=== PATIENT | female | born 1935 | race Caucasian/White ===

== ENCOUNTER 2016-07-06 12:56 | Emergency (ER) | payer MEDICARE, BC ==
[2016-07-06] MEDS ORDERED: Sodium Chloride 0.9% 10 ML Syringe FLUSH PRN (13:12)
[2016-07-06] MEDS ORDERED: HYDROmorphone 1 MG/ML Syringe IVPUSH ONE (13:13)
--- NOTE | 2016-07-06 13:47 | EDM.PDOC ---
ED HPI Trauma - General Chief Complaint: Lower Extremity Injury/Pain Stated Complaint: [facility] Time Seen by Provider: 07/06/16 13:06 Source: Reports: Patient, EMS History Limitations: Reports: No limitations - History of Present Illness INITIAL COMMENTS - FREE TEXT/NARRATIVE: The patient present with right hip pain. She has a prosthetic hip on the right and she was sitting down to use the toilet and when she tried to get up she had severe pain. She had her hip surgery years ago in [place]. Two years ago she had a hip dislocation that Dr Carpio had to come in to reduce it. She came in by ambulance. Her BP was high and she was demanding to take her blood pressure medications. I allowed her to do that. She denies any other pain. She had no other injuries. She just sat right back down on the toilet when this happened. Occurred When: just prior to arrival Occurred Where: home Method of Injury: other (Getting up off of the toilet) Severity: severe Pain/Injury Location: Reports: lower extremity, right (hip) Consciousness: Reports: no loss of consciousness Associated Symptoms: Reports: no other symptoms Allergies/ADRs: Allergies No Known Allergies Allergy (Verified 07/06/16 13:03) Home Medications: Ambulatory Orders Irbesartan/Hydrochlorothiazide [Irbesartan-Hctz 300-12.5 mg Tb] 1 tab PO DAILY 10/25/14 [Confirmed 07/06/16] Levothyroxine [Synthroid] 75 mcg PO DAILY 10/25/14 [Confirmed 07/06/16] Metoprolol Tartrate [Lopressor] 50 mg PO BID 10/25/14 [Confirmed 07/06/16] Past Medical History Cardiovascular History: Reports: Hypertension Other Musculoskeletal History: L4-L5, left hip pain Other Endocrine/Metabolic History: Per pt no thyroid problems, after menopause likes pts on thyroid meds - Past Surgical History Musculoskeletal Surgical History: Reports: Hip replacement Other Musculoskeletal Surgeries/Procedures:: right hip 2003 Social & Family History - Tobacco Use Smoking Status *Q: Never Smoker Second Hand Smoke Exposure: No - Caffeine Use Caffeine Use: Reports: Coffee - Recreational Drug Use Recreational Drug Use: No Review of Systems - Review of Systems Review Of Systems: See Below Constitutional: Reports: no symptoms Eyes: Reports: no symptoms Ears: Reports: no symptoms Nose: Reports: no symptoms Mouth/Throat: Reports: no symptoms Respiratory: Reports: No Symptoms Cardiovascular: Reports: no symptoms GI/Abdominal: Reports: No symptoms Genitourinary: Reports: no symptoms Musculoskeletal: Reports: other (Right hip pain) Trauma Exam - Physical Exam Exam: See Below Exam Limited By: No limitations General Appearance: Reports: alert, no apparent distress Head: Reports: atraumatic, normocephalic Ears: Reports: normal external exam Nose: Reports: normal inspection Respiratory Exam: Reports: no respiratory distress, lungs clear, normal breath sounds Cardiovascular: Reports: regular rate, rhythm, no edema, no murmur GI/Abdominal: Reports: soft, non tender, no organomegaly Extremities: Reports: other (Pain upon palpation right hip. Good sensation and pulses distally.) Course - Vital Signs Last Recorded V/S: Last Vital Signs Temp 98.1 F 07/06/16 14:38 Pulse 60 07/06/16 14:38 Resp 18 07/06/16 14:38 BP 152/71 H 07/06/16 14:38 Pulse Ox 98 07/06/16 14:38 - Orders/Labs/Meds Orders: Active Orders 24 hr Category Date Time Status Peripheral IV Care [RC] . DIRECTED Care 07/06/16 13:13 Active Hip Min 1V w Pelvis Rt [CR] Stat Exams 07/06/16 13:13 Taken Hip Min 2V or 3V Rt [CR] Stat Exams 07/06/16 15:01 Taken Sodium Chloride 0.9% [Saline Flush] Med 07/06/16 13:12 Active 10 ml FLUSH ASDIRECTED PRN Peripheral IV Insertion Adult [OM.PC] Routine Oth 07/06/16 13:12 Ordered Medication Orders Sodium Chloride (Saline Flush) 10 ml FLUSH ASDIRECTED PRN PRN Reason: Keep Vein Open Last Admin: 07/06/16 13:24 Dose: 10 ml Meds: Medications Generic Name Dose Route Start Last Admin Trade Name Freq PRN Reason Stop Dose Admin Sodium Chloride 10 ml 07/06/16 13:12 07/06/16 13:24 Saline Flush FLUSH 10 ml ASDIRECTED PRN Administration Keep Vein Open Discontinued Medications Generic Name Dose Route Start Last Admin Trade Name Freq PRN Reason Stop Dose Admin Hydromorphone HCl 1 mg 07/06/16 13:13 07/06/16 13:20 Dilaudid IVPUSH 07/06/16 13:14 1 mg ONETIME ONE Administration Lactated Ringer's Confirm 07/06/16 14:10 Ringers, Lactated Administered 07/06/16 14:11 Dose 1,000 mls @ as directed .ROUTE .STK-MED ONE Lidocaine HCl Confirm 07/06/16 14:56 Xylocaine-Mpf 1% Administered 07/06/16 14:57 Dose 4 mls @ as directed .ROUTE .STK-MED ONE Midazolam HCl Confirm 07/06/16 14:56 Versed 1 Mg/Ml Administered 07/06/16 14:57 Dose 2 mg .ROUTE .STK-MED ONE Propofol Confirm 07/06/16 14:56 Diprivan 20 Ml Administered 07/06/16 14:57 Dose 200 mg .ROUTE .STK-MED ONE - Re-Assessments/Exams Free Text/Narrative Re-Assessment/Exam: 07/06/16 13:47 I ordered an IV saline lock and dilaudid 1mg IV. I will get an x-ray. 07/06/16 14:21 The x-ray confirms a superior posterior right prosthetic hip dislocation. The patient does not want me to reduce it but she wants Dr Carpio to do it. I called Dr Carpio and he will come in and reduce it. He wanted anaesthesia called. I have called them too. 07/06/16 15:33 Dr Carpio came in and successfully reduced her hip dislocation. I will discharge her to home with follow up to him. Departure - Departure Time of Disposition: 15:35 Disposition: Home, Self-Care 01 Condition: good Clinical Impression: Hip dislocation, right Qualifiers: Encounter type: initial encounter Qualified Code(s): S73.004A - Unspecified dislocation of right hip, initial encounter Referrals: Jose Carpio MD [Physician] - 2 Weeks Forms: ED Department Discharge Additional Instructions: Follow up with Dr Carpio in 2 weeks. - My Orders Last 24 Hours: My Active Orders 07/06/16 13:12 Sodium Chloride 0.9% [Saline Flush] 10 ml FLUSH ASDIRECTED PRN Peripheral IV Insertion Adult [OM.PC] Routine 07/06/16 13:13 Peripheral IV Care [RC] . DIRECTED Hip Min 1V w Pelvis Rt [CR] Stat - Assessment/Plan Last 24 Hours: My Active Orders 07/06/16 13:12 Sodium Chloride 0.9% [Saline Flush] 10 ml FLUSH ASDIRECTED PRN Peripheral IV Insertion Adult [OM.PC] Routine 07/06/16 13:13 Peripheral IV Care [RC] . DIRECTED Hip Min 1V w Pelvis Rt [CR] Stat
[2016-07-06] MEDS ORDERED: Lactated Ringers 1,000 ML ONE (14:10)
--- NOTE | 2016-07-06 14:35 | PCM.PREANE ---
Preanesthetic Assessment - Anesthesia/Transfusion/Family Hx Anesthesia History: Prior Anesthesia Without Reaction Family History of Anesthesia Reaction: No - Review of Systems General: Malaise Pulmonary: No Symptoms Cardiovascular: No Symptoms Gastrointestinal: No symptoms Neurological: No Symptoms Other: Reports: Thyroid Problems (hypothyroid) - Physical Assessment NPO Status Date: 07/06/16 NPO Status Time: 10:30 Pulse: 60 O2 Sat by Pulse Oximetry: 98 Respiratory Rate: 18 Blood Pressure: 152/71 Temperature: 36.7 C Vital Signs: Last Vital Signs Temp 36.9 C 07/06/16 13:00 Pulse 60 07/06/16 13:00 Resp 18 07/06/16 13:00 BP Pulse Ox 98 07/06/16 13:00 Height: 1.68 m Weight: 90.718 kg ASA Class: 2 Mental Status: Alert & Oriented x3 Airway Class: Mallampati = 2 Dentition: Reports: Implants (teeth on top of mouth) Thyro-Mental Finger Breadths: 3 Mouth Opening Finger Breadths: 3 ROM/Head Extension: Full Lungs: Clear to auscultation, Normal respiratory effort Cardiovascular: Regular Rate, Regular Rhythm, No Murmurs - Allergies Allergies/Adverse Reactions: Allergies Allergy/AdvReac Type Severity Reaction Status Date / Time No Known Allergies Allergy Verified 07/06/16 13:03 - Blood Blood Available: No Product(s) Available: None - Anesthesia Plan Pre-Op Medication Ordered: Beta Milton Beta Milton: Metoprolol Med Last Dose Date: 07/06/16 Med Last Dose Time: 14:00 - Acknowledgements Anesthesia Type Planned: MAC Pt an Appropriate Candidate for the Planned Anesthesia: Yes Alternatives and Risks of Anesthesia Discussed w Pt/Guardian: Yes Pt/Guardian Understands and Agrees with Anesthesia Plan: Yes PreAnesthesia Questionnaire Cardiovascular History: Reports: Hypertension Other Musculoskeletal History: L4-L5, left hip pain Other Endocrine/Metabolic History: Per pt no thyroid problems, after menopause likes pts on thyroid meds - Past Surgical History Musculoskeletal Surgical History: Reports: Hip replacement Other Musculoskeletal Surgeries/Procedures:: right hip 2003 - SUBSTANCE USE Smoking Status *Q: Never Smoker Tobacco Use Within Last Twelve Months: No Second Hand Smoke Exposure: No Days Per Week of Alcohol Use: 0 Number of Drinks Per Day: 0 Total Drinks Per Week: 0 Recreational Drug Use History: No - HOME MEDS Home Medications: Home Meds Irbesartan/Hydrochlorothiazide [Irbesartan-Hctz 300-12.5 mg Tb] 1 tab PO DAILY 10/25/14 [History] Levothyroxine [Synthroid] 75 mcg PO DAILY 10/25/14 [History] Metoprolol Tartrate [Lopressor] 50 mg PO BID 10/25/14 [History] - CURRENT (IN HOUSE) MEDS Current Meds: Current Medications Sodium Chloride (Saline Flush) 10 ml FLUSH ASDIRECTED PRN PRN Reason: Keep Vein Open Last Admin: 07/06/16 13:24 Dose: 10 ml Discontinued Medications Hydromorphone HCl (Dilaudid) 1 mg IVPUSH ONETIME ONE Stop: 07/06/16 13:14 Last Admin: 07/06/16 13:20 Dose: 1 mg Lactated Ringer's (Ringers, Lactated) Confirm Administered Dose 1,000 mls @ as directed .ROUTE .STK-MED ONE Stop: 07/06/16 14:11
[2016-07-06] MEDS ORDERED: Lidocaine 1% 4 ML ONE (14:56)
[2016-07-06] MEDS ORDERED: Midazolam 1 MG/ML 2 ML SDV ONE (14:56)
[2016-07-06] MEDS ORDERED: Propofol 200 MG/20 ML SDV ONE (14:56)
[2016-07-06 16:45] VITALS: BP 140/78
--- NOTE | 2016-07-07 17:25 | CR ---
Pelvis and right hip: AP view of the pelvis was obtained as well as AP and lateral views of the right hip. Comparison: Previous right hip study of 10/25/14. Dislocated right hip prosthesis is seen. Severe degenerative change noted within the left hip. Bony structures are osteopenic. No acute fracture is seen. Impression: 1. Dislocated right hip prosthesis. 2. Other incidental findings as described above. Diagnostic code #3
--- NOTE | 2016-07-07 17:25 | CR ---
Right hip: AP and lateral views of the right hip were obtained. Comparison: Previous study performed earlier on the same day (12:38 PM). Previous right hip dislocation has been reduced. Components of right hip prosthesis are aligned. Other portions of the right hip are stable. Impression: 1. Right hip prosthesis shows normal alignment on current exam. Previous dislocation has been corrected. Diagnostic code #2
== END 2016-07-06 16:35 | disposition home or self-care (01) ==
LOC: JD.ED 12:56 → SUPCPDRO 12:56 → JD.ED 16:35
DX: S73.004A Unspecified dislocation of right hip, initial encounter (principal); Z96.641 Presence of right artificial hip joint; X58.XXXA Exposure to other specified factors, initial encounter; I10 Essential (primary) hypertension; Z79.899 Other long term (current) drug therapy
CPT/HCPCS: 27252; 73501; 73502; 96374; 99285; J1170; J7050; 01200; 99284; J2250; J2704

== ENCOUNTER 2019-10-05 13:02 | Emergency (ER) | payer MEDICARE, BC ==
[2019-10-05 13:14] VITALS: BP 220/92; PULSE 71
[2019-10-05] MEDS ORDERED: HYDROmorphone 0.5 MG/0.5 ML Syringe IVPUSH ONE (13:18)
[2019-10-05] MEDS ORDERED: Sodium Chloride 0.9% 10 ML Syringe FLUSH PRN (13:28)
[2019-10-05] MEDS ORDERED: LORazepam 2 MG/ML SDV IVPUSH ONE (13:29)
--- NOTE | 2019-10-05 13:44 | EDM.PDOC ---
ED HPI GENERAL MEDICAL PROBLEM - General Chief Complaint: Lower Extremity Injury/Pain Stated Complaint: [facility] Time Seen by Provider: 10/05/19 13:20 Source of Information: Reports: Patient, RN Notes Reviewed - History of Present Illness INITIAL COMMENTS - FREE TEXT/NARRATIVE: 84 yr old female just twisted to the right in a bianchi at a restaurant. Her R hip dislocated with sudden onset R hip pain similar to what has happened on 3 previous occasions. She did have R hip replacement 16 yrs ago at a [facility]. Has had multiple dislocations the past 4 yrs with the last dislocation just 1 month ago, reduced at a [facility]. Right Hip Pain Score (Numeric/FACES): 10 - Related Data Allergies Allergy/AdvReac Type Severity Reaction Status Date / Time No Known Allergies Allergy Verified 10/05/19 13:14 Home Meds: Home Meds Irbesartan/Hydrochlorothiazide [Irbesartan-Hctz 300-12.5 mg Tb] 1 tab PO DAILY 10/25/14 [History] Levothyroxine [Synthroid] 75 mcg PO DAILY 10/25/14 [History] Metoprolol Tartrate [Lopressor] 50 mg PO BID 10/25/14 [History] Past Medical History Cardiovascular History: Reports: Hypertension Other Musculoskeletal History: L4-L5, left hip pain Other Endocrine/Metabolic History: Per pt no thyroid problems, after menopause likes pts on thyroid meds - Past Surgical History Musculoskeletal Surgical History: Reports: Hip Replacement, Other (See Below) Other Musculoskeletal Surgeries/Procedures:: hip dislocation Social & Family History - Tobacco Use Smoking Status *Q: Never Smoker - Caffeine Use Caffeine Use: Reports: Coffee Review of Systems - Review of Systems Review Of Systems: See Below Constitutional: Reports: No Symptoms Mouth/Throat: Reports: No Symptoms Respiratory: Denies: Shortness of Breath Cardiovascular: Denies: Chest Pain GI/Abdominal: Denies: Nausea, Vomiting Musculoskeletal: Reports: Joint Pain ( R hip) Neurological: Reports: Difficulty Walking (unable to stand or bear wt). Denies: Numbness, Tingling ED EXAM, GENERAL - Physical Exam Exam: See Below General Appearance: Alert, Moderate Distress Head: Atraumatic Neck: Supple Respiratory/Chest: No Respiratory Distress, Lungs Clear, Normal Breath Sounds Cardiovascular: Regular Rate, Rhythm Extremities: Limited Range of Motion (unable to move RLE, R leg slightly raised, kept medial, resists and motion of RLE) Neurological: Alert, Oriented, No Motor/Sensory Deficits Skin Exam: Warm, Dry, Normal Color Course - Vital Signs Last Recorded V/S: Last Vital Signs Temp 97.6 F 10/05/19 13:11 Pulse 71 10/05/19 13:11 Resp 18 10/05/19 13:11 BP 220/92 H 10/05/19 13:11 Pulse Ox 97 10/05/19 13:11 - Orders/Labs/Meds Orders: Active Orders 24 hr Category Date Time Status Peripheral IV Care [RC] . DIRECTED Care 10/05/19 13:28 Active Ondansetron [Zofran] Med 10/05/19 14:10 Active 4 mg IVPUSH ONETIME PRN Sodium Chloride 0.9% [Saline Flush] Med 10/05/19 13:28 Active 10 ml FLUSH ASDIRECTED PRN Peripheral IV Insertion Adult [OM.PC] Stat Oth 10/05/19 13:28 Ordered Medication Orders Ondansetron HCl (Zofran) 4 mg IVPUSH ONETIME PRN PRN Reason: Nausea/Vomiting Sodium Chloride (Saline Flush) 10 ml FLUSH ASDIRECTED PRN PRN Reason: Keep Vein Open Last Admin: 10/05/19 13:55 Dose: 10 ml Documented by: CE Meds: Medications Generic Name Dose Route Start Last Admin Trade Name Freq PRN Reason Stop Dose Admin Ondansetron HCl 4 mg 10/05/19 14:10 Zofran IVPUSH ONETIME PRN Nausea/Vomiting Sodium Chloride 10 ml 10/05/19 13:28 10/05/19 13:55 Saline Flush FLUSH 10 ml ASDIRECTED PRN Administration Keep Vein Open Discontinued Medications Generic Name Dose Route Start Last Admin Trade Name Freq PRN Reason Stop Dose Admin Fentanyl Confirm 10/05/19 14:13 Sublimaze Administered 10/05/19 14:14 Dose 100 mcg .ROUTE .STK-MED ONE Hydromorphone HCl 0.5 mg 10/05/19 13:18 10/05/19 13:21 Dilaudid IVPUSH 10/05/19 13:19 0.5 mg ONETIME ONE Administration Lidocaine HCl Confirm 10/05/19 14:17 Xylocaine-Mpf 1% Administered 10/05/19 14:18 Dose 2 mls @ as directed .ROUTE .STK-MED ONE Ketamine HCl Confirm 10/05/19 14:14 Ketalar Administered 10/05/19 14:15 Dose 500 mg .ROUTE .STK-MED ONE Lorazepam 0.5 mg 10/05/19 13:29 10/05/19 13:49 Ativan IVPUSH 10/05/19 13:30 0.5 mg ONETIME ONE Administration Metoclopramide HCl Confirm 10/05/19 14:15 Reglan Administered 10/05/19 14:16 Dose 10 mg .ROUTE .STK-MED ONE Midazolam HCl Confirm 10/05/19 14:14 Versed 1 Mg/Ml Administered 10/05/19 14:15 Dose 2 mg .ROUTE .STK-MED ONE - Re-Assessments/Exams Free Text/Narrative Re-Assessment/Exam: 10/05/19 16:[address] Carpio Orthopedist come do the reduction. He kindly did agree to do that with NA providing sedation with IV fentanyl and versed. There was GI concern with having eaten potato soup just prior to the dislocation so propfol was given. 10/05/19 16:40 post reduction hip looks good on Xray. She has been up to the bathroom and back to her cot without difficulty. She does have a walker at home and I have strongly advised her to use that for this first week or so as much as possible, to move slowly and carefully. Discharge instr. as documented. Departure - Departure Time of Disposition: 16:55 Disposition: Home, Self-Care 01 Condition: Fair Clinical Impression: Hip dislocation, right Qualifiers: Encounter type: initial encounter Qualified Code(s): S73.004A - Unspecified dislocation of right hip, initial encounter - Discharge Information Referrals: PCP,None [Primary Care Provider] - Forms: ED Department Discharge Additional Instructions: Move slowly and carefully. Use walker as much as possible for the next week or so. See Dr Carpio early October as planned. Call tomorrow AM to see if an earlier appointment is possible. Ice packs R hip if needed for discomfort. Tylenol q 8 hr if needed for discomfort. Sepsis Event Note (ED) - Evaluation Sepsis Screening Result: No Definite Risk - Focused Exam Vital Signs: Vital Signs Temp Pulse Resp BP Pulse Ox 10/05/19 13:11 97.6 F 71 18 220/92 H 97 - My Orders Last 24 Hours: My Active Orders 10/05/19 13:28 Peripheral IV Care [RC] . DIRECTED Sodium Chloride 0.9% [Saline Flush] 10 ml FLUSH ASDIRECTED PRN Peripheral IV Insertion Adult [OM.PC] Stat - Assessment/Plan Last 24 Hours: My Active Orders 10/05/19 13:28 Peripheral IV Care [RC] . DIRECTED Sodium Chloride 0.9% [Saline Flush] 10 ml FLUSH ASDIRECTED PRN Peripheral IV Insertion Adult [OM.PC] Stat
--- NOTE | 2019-10-05 14:00 | CR ---
Right hip: Single AP view of the right hip was obtained. Comparison: Prior pelvis and right hip study of 07/06/16. Dislocated right hip prosthesis is seen. No definite acute bony abnormality is appreciated. Impression: 1. Dislocated right hip prosthesis. Diagnostic code #5 This report was dictated in MDT
--- NOTE | 2019-10-05 14:07 | PCM.PREANE ---
Preanesthetic Assessment - Procedure Proposed Procedure: Rt HIP closed reduction - Anesthesia/Transfusion/Family Hx Anesthesia History: Prior Anesthesia Without Reaction Transfusion History: Prior Transfusion Without Reaction - Review of Systems General: No Symptoms Pulmonary: No Symptoms Cardiovascular: No Symptoms Gastrointestinal: No Symptoms Neurological: No Symptoms Other: Reports: None - Physical Assessment NPO Status Date: 10/05/19 NPO Status Time: 12:15 (soup) Vital Signs: Last Vital Signs Temp 97.6 F 10/05/19 13:11 Pulse 71 10/05/19 13:11 Resp 18 10/05/19 13:11 BP 220/92 H 10/05/19 13:11 Pulse Ox 97 10/05/19 13:11 Height: 1.61 m Weight: 87.543 kg ASA Class: 2E Mental Status: Alert & Oriented x3 Airway Class: Mallampati = 2 Dentition: Reports: [place](s), Implants Thyro-Mental Finger Breadths: 3 Mouth Opening Finger Breadths: 3 ROM/Head Extension: Full Lungs: Clear to Auscultation, Normal Respiratory Effort Cardiovascular: Regular Rate, Regular Rhythm - Allergies Allergies/Adverse Reactions: Allergies Allergy/AdvReac Type Severity Reaction Status Date / Time No Known Allergies Allergy Verified 10/05/19 13:14 - Anesthesia Plan Beta Milton: Metoprolol Med Last Dose Date: 10/05/19 Med Last Dose Time: 12:30 - Acknowledgements Anesthesia Type Planned: MAC Pt an Appropriate Candidate for the Planned Anesthesia: Yes Alternatives and Risks of Anesthesia Discussed w Pt/Guardian: Yes Pt/Guardian Understands and Agrees with Anesthesia Plan: Yes PreAnesthesia Questionnaire Cardiovascular History: Reports: Hypertension Other Musculoskeletal History: L4-L5, left hip pain Other Endocrine/Metabolic History: Per pt no thyroid problems, after menopause likes pts on thyroid meds - Past Surgical History Musculoskeletal Surgical History: Reports: Hip Replacement, Other (See Below) Other Musculoskeletal Surgeries/Procedures:: hip dislocation - SUBSTANCE USE Smoking Status *Q: Never Smoker - HOME MEDS Home Medications: Home Meds Irbesartan/Hydrochlorothiazide [Irbesartan-Hctz 300-12.5 mg Tb] 1 tab PO DAILY 10/25/14 [History] Levothyroxine [Synthroid] 75 mcg PO DAILY 10/25/14 [History] Metoprolol Tartrate [Lopressor] 50 mg PO BID 10/25/14 [History] - CURRENT (IN HOUSE) MEDS Current Meds: Current Medications Sodium Chloride (Saline Flush) 10 ml FLUSH ASDIRECTED PRN PRN Reason: Keep Vein Open Last Admin: 10/05/19 13:55 Dose: 10 ml Documented by: Discontinued Medications Hydromorphone HCl (Dilaudid) 0.5 mg IVPUSH ONETIME ONE Stop: 10/05/19 13:19 Last Admin: 10/05/19 13:21 Dose: 0.5 mg Documented by: Lorazepam (Ativan) 0.5 mg IVPUSH ONETIME ONE Stop: 10/05/19 13:30 Last Admin: 10/05/19 13:49 Dose: 0.5 mg Documented by:
[2019-10-05] MEDS ORDERED: Ondansetron 4 MG/2 ML SDV IVPUSH PRN (14:10)
[2019-10-05] MEDS ORDERED: fentaNYL 100 MCG/2 ML SDV ONE (14:13)
[2019-10-05] MEDS ORDERED: Midazolam 1 MG/ML 2 ML SDV ONE (14:14)
[2019-10-05] MEDS ORDERED: Ketamine 500 mg/10 ML MDV ONE (14:14)
[2019-10-05] MEDS ORDERED: Metoclopramide 10 MG/2 ML SDV ONE (14:15)
[2019-10-05] MEDS ORDERED: Lidocaine 1% 2 ML ONE (14:17)
--- NOTE | 2019-10-05 15:41 | CR ---
Right hip: AP view of the right hip was obtained. Comparison: Prior right hip exam performed earlier on the same day (1:31 PM). Right hip prosthesis is seen. Components are aligned. Underlying bony structures are intact. Impression: 1. Previous dislocation has been reduced. Alignment of right hip prosthesis appears normal. Diagnostic code #1 This report was dictated in MDT
--- NOTE | 2019-10-07 08:42 | OR ---
DATE OF OPERATION: 10/05/2019 SURGEON: Jose Carpio MD OPERATION PERFORMED: Closed reduction of posterior dislocated right total hip arthroplasty. PREOPERATIVE DIAGNOSIS: Right total hip arthroplasty posterior hip dislocation. POSTOPERATIVE DIAGNOSIS: Right total hip arthroplasty posterior hip dislocation. ANESTHESIA: MAC sedation. ANESTHESIA PROVIDER: Christina Devi. TOLL TRANSMISSION WORKER: None. COMPLICATIONS: None. CONDITION: Stable. DESCRIPTION OF PROCEDURE: The patient was identified in the Trauma [facility]. Proper site was marked and identified. Time-out was performed. Consent was obtained. At this time, a closed reduction maneuver was done to the right total hip arthroplasty. At this time, it was reduced. X-ray showed it to be reduced on AP and lateral views. The patient was placed in abductor wedge and will follow up with us in clinic for discussion of a revision. ESTIMATED BLOOD LOSS: MMODAL /[id number]
--- NOTE | 2019-10-07 09:01 | CONS ---
CONSULTING PHYSICIAN: Jose Carpio MD DATE OF CONSULTATION: 10/05/2019 HISTORY OF PRESENT ILLNESS: This is an 84-year-old female who was known to us previously for previous right hip dislocations. The patient had the right hip done by another surgeon many years ago. It has dislocated now 4 times. The patient was just at the coffee shop when she turned and it popped out. She was subsequently brought to emergency department. She had gross deformity of the right hip. She, at this time, wanted us to reduce it. OBJECTIVE: VITAL SIGNS: Afebrile. Vital signs stable. GENERAL: The patient is alert. She is in no acute distress. EXTREMITIES: She has obvious deformity of the right hip with shortening and external rotation. She is otherwise neurovascularly intact distally. DIAGNOSTIC DATA: Radiographs show posterior dislocated right total hip arthroplasty. 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 PLAN: The patient at this time has had many dislocations. We did discuss that in the future we should discuss revision. At this time, we will plan on reducing the hip, placing her in abductor wedge, and have her follow up in clinic. MMELDA /[id number]
== END 2019-10-05 17:28 | disposition home or self-care (01) ==
LOC: JD.ED 13:02
DX: T84.020A Dislocation of internal right hip prosthesis, initial encounter (principal); I10 Essential (primary) hypertension; Z79.899 Other long term (current) drug therapy
CPT/HCPCS: 27265; 73501; 96374; 96375; 99152; 99283; J1170; J2001; J2060; J2250; J2765; J3010

== ENCOUNTER 2023-10-06 08:54 | Emergency (ER) | payer MEDICARE, BC ==
[2023-10-06 09:17] VITALS: PULSE 76
[2023-10-06 10:15] LABS: BASOPHILS PERCENT AUTO 1.1 % (0.0-1.0); EOSINOPHILS ABSOLUTE AUTO 0.1 K/mm3 (0.0-0.4); EOSINOPHILS PERCENT AUTO 2.2 % (0.0-6.0); HEMATOCRIT 31.6 % (37.0-47.0); IMMATURE GRAN ABSOLUTE AUTO 0.01 K/mm3 (0.00-0.05); IMMATURE GRAN PERCENT AUTO 0.3 % (0.0-0.4); LYMPHOCYTES ABSOLUTE AUTO 0.6 K/mm3 (1.0-4.8); MEAN CORPUSCULAR HEMOGLOBIN 29.2 pg (28.0-32.0); MEAN CORPUSCULAR HGB CONC 31.6 g/dl (32.0-36.0); MEAN CORPUSCULAR VOLUME 92.4 fl (83.0-99.0); MEAN PLATELET VOLUME 10.7 fl (9.4-12.3); MONOCYTES ABSOLUTE AUTO 0.4 K/mm3 (0.0-0.8); MONOCYTES PERCENT AUTO 11.2 % (0.0-8.0); NEUTROPHILS ABSOLUTE AUTO 2.4 K/mm3 (1.8-7.7); NEUTROPHILS PERCENT AUTO 68.2 % (41.0-71.0); PLATELET COUNT,PLT 206 K/mm3 (150-400); RED BLOOD CELL COUNT 3.42 M/mm3 (4.10-5.30); WHITE BLOOD CELL COUNT,WBC 3.58 K/mm3 (3.9-11.3)
[2023-10-06 10:50] LABS: ANION GAP 11.7 (5-15); BILIRUBIN TOTAL 0.6 mg/dL (0.2-1.0); CALCIUM 8.9 mg/dL (8.5-10.1); EST CRCL DRUG DOSING (CG) 34.23 mL/min; MAGNESIUM 1.9 mg/dL (1.8-2.4); POTASSIUM,K 3.7 mEq/L (3.5-5.1); PROTEIN TOTAL,TP 6.1 g/dl (6.4-8.2); TSH 1.99 uIU/mL (0.358-3.74)
[2023-10-06 11:12] LABS: APPEARANCE,URINE CLEAR (Clear); BILIRUBIN,URINE NEGATIVE (Negative); COLOR,URINE YELLOW (Yellow); GLUCOSE,URINE NEGATIVE (Negative); KETONES,URINE NEGATIVE (Negative); LEUKOCYTE ESTERASE,URINE TRACE (Negative); NITRITE,URINE POSITIVE (Negative); OCCULT BLOOD,URINE NEGATIVE (Negative); PROTEIN,URINE NEGATIVE (Negative); UROBILINOGEN,URINE 0.2 (0.2-1.0)
[2023-10-06 11:41] LABS: BACTERIA,URINE MODERATE /hpf (FEW); MUCUS,URINE FEW /hpf (FEW); RBC,URINE 0-5 /hpf (0-5); WBC,URINE 0-5 /hpf (0-5)
[2023-10-06] MEDS: Furosemide 40 MG/4 ML VIAL IVPUSH ONE (14:18)
[2023-10-06] MEDS: cefTRIAXone 1 GM in Sodium Chloride 0.9% 100 ML IV ONE (14:19)
[2023-10-06 14:52] VITALS: BP 137/79
== END 2023-10-06 11:45 | disposition left against medical advice (07) ==
LOC: JD.ED 08:54
DX: R00.2 Palpitations (principal); I50.9 Heart failure, unspecified; R94.31 Abnormal electrocardiogram [ECG] [EKG]; N39.0 Urinary tract infection, site not specified; I10 Essential (primary) hypertension; Z79.890 Hormone replacement therapy; Z79.899 Other long term (current) drug therapy
CPT/HCPCS: 36415; 71045; 71045-26; 80053; 81001; 82947; 83735; 83880; 84443; 84484; 85025; 87086; 87088; 87186; 93005; 93010; 99285

== ENCOUNTER 2024-11-16 07:44 | Emergency (ER) | payer MEDICARE, BC ==
[2024-11-16 09:54] VITALS: BP 184/94; PULSE 70
== END 2024-11-16 10:01 | disposition home or self-care (01) ==
LOC: SUPCPDRO 07:44 → JD.ED 07:44
DX: M25.551 Pain in right hip (principal); R60.0 Localized edema; I10 Essential (primary) hypertension; I25.2 Old myocardial infarction; E03.9 Hypothyroidism, unspecified; Z79.899 Other long term (current) drug therapy; Z79.890 Hormone replacement therapy; Z79.82 Long term (current) use of aspirin; Z86.16 Personal history of COVID-19
CPT/HCPCS: 73502; 93971; 99284; A9270